=== PATIENT | male | born 2000 | race Caucasian/White ===

== ENCOUNTER → 2020-03-16 | Outpatient (REF) | payer OTHER ==
[2020-03-16 12:43] LABS: BLOOD UREA NITROGEN 14 MG/DL (7-18); CALCIUM LEVEL 8.9 MG/DL (8.5-10.1); CARBON DIOXIDE LEVEL 29 MEQ/L (21-32); CHLORIDE LEVEL 107 MEQ/L (98-107); CREATININE FOR GFR 0.86 MG/DL (0.70-1.30); GLOMERULAR FILTRATION RATE > 60.0 (>60); GLUCOSE, FASTING 83 MG/DL (70-100); POTASSIUM SERUM 4.4 MEQ/L (3.5-5.1); SODIUM LEVEL 140 MEQ/L (136-145)
[2020-03-16 12:45] LABS: HEMATOCRIT 41.9 % (42.0-52.0); HEMOGLOBIN 14.1 g/dl (13.5-17.5); MEAN CORPUSCULAR HEMOGLOBIN 31.8 pg (27.0-33.0); MEAN CORPUSCULAR HGB CONC 33.7 g/dl (32.0-36.5); MEAN CORPUSCULAR VOLUME 94.6 fl (80.0-96.0); PLATELET COUNT, AUTOMATED 300 10^3/uL (150-450); RED BLOOD COUNT 4.43 10^6/uL (4.30-6.10); WHITE BLOOD COUNT 5.5 10^3/uL (4.0-10.0)
[2020-03-16 12:55] LABS: INR 1.11
[2020-03-16 12:56] LABS: PARTIAL THROMBOPLASTIN TIME 29.1 SECONDS (25.0-38.4)
== END ==
LOC: M LABSMT 10:16
PROVIDERS: ATTEND Nurse Practitioner Family
DX: Z01.818 Encounter for other preprocedural examination (principal); N47.1 Phimosis

== ENCOUNTER 2020-03-18 07:13 | Day surgery (SDC) | payer OTHER ==
[~2020-03-18] VITALS: Ht 172.7 cm; Wt 93.4 kg
[~2020-03-18 07:13] MED LIST: LR 1,000 ML IV ONE; ceFAZolin SOD 2 GM in IV 1 EA IV ONE
[2020-03-18] MEDS ORDERED: fentaNYL 100 MCG/2 ML INJECTION (J3010) As Ordered ONE (07:50)
[2020-03-18] MEDS ORDERED: dexameTHASONE 4 MG/ML 1ML VIAL (J1100 PER 1MG) As Ordered ONE (07:50)
[2020-03-18] MEDS ORDERED: LIDOCAINE 2% 100MG/5ML SDV (FOR ANES.) As Ordered ONE (07:50)
[2020-03-18] MEDS ORDERED: propofoL 200 MG/20 ML VIAL As Ordered ONE (07:50)
[2020-03-18] MEDS ORDERED: METOCLOPRAMIDE INJ 10MG/2ML VIAL (J2765 PER 1) As Ordered ONE (07:50)
[2020-03-18] MEDS ORDERED: ONDANSETRON 4MG/2ML VIAL As Ordered ONE (07:50)
[2020-03-18] MEDS ORDERED: MIDAZOLAM INJ 2MG/2ML VIAL (J2250 PER 1MG) As Ordered ONE (07:50)
[2020-03-18] MEDS ORDERED: BACITRACIN OINTMENT 30GM TUBE As Ordered ONE (09:10)
[2020-03-18] MEDS ORDERED: KETOROLAC 60 MG/2 ML VIAL As Ordered ONE (10:22)
--- NOTE | 2020-03-18 11:09 | ROOPDOC ---
[facility] Report Of Operation Report of Operation DATE OF PROCEDURE: 03/18/20 PREPROCEDURE DIAGNOSIS: Phimosis. POSTPROCEDURE DIAGNOSIS: Phimosis. OPERATIVE PROCEDURE: Circumcision. SURGEON: Muna Huber MD DEPUTY SHERIFF GENERALIST/BAILIFF: None. ANESTHESIA: General. OPERATIVE INDICATIONS: This is a 19-year-old male with phimosis presenting to the operating room today for the above listed procedure. DESCRIPTION OF PROCEDURE: The patient was brought to the operating room and general endotracheal anesthesia was induced. Prophylactic antibiotics were infused. He was then placed in the supine position, and prepped and draped in the usual sterile fashion. At this point, circumcising incisions were made at the level of coronal sulcus with the foreskin completely pulled over the glans, and then also with the foreskin retracted down off of the glans. These circumcising incisions were then connected using electrocautery. All the foreskin between the circumcising incisions were then removed using electrocautery. Once that was done hemostasis was obtained using the coagulation current. Once satisfied with hemostasis, the skin on the penile shaft was reapproximated to the glans using interrupted #3-0 chromic sutures. Once that was done dressings were applied, including Kalpesh and a Coban dressing, and marked the conclusion of the procedure. The patient was then awakened from anesthesia and transported to the recovery room in stable condition. ESTIMATED BLOOD LOSS: 15 mL. COMPLICATIONS: None. SPECIMENS: Foreskin. PLAN: The patient will followup in clinic in a approximately 2 weeks for a postoperative visit. MUNA HUBER MD Mar 18, 2020 11:09
[2020-03-18] MEDS ORDERED: oxyCODONE 5MG TAB PO PRN (11:15)
[2020-03-18] MEDS ORDERED: ONDANSETRON 4MG/2ML VIAL IV PRN (11:15)
[2020-03-18] MEDS ORDERED: PERCOCET 5MG/325MG TAB PO PRN (11:15)
[2020-03-18] MEDS ORDERED: fentaNYL 100 MCG/2 ML INJECTION (J3010) IV PRN (11:15)
[2020-03-18] MEDS ORDERED: LR 1,000 ML IV SCH (11:15)
[2020-03-18 12:35] VITALS: BP 136/63
== END 2020-03-18 13:45 | disposition home or self-care (01) ==
LOC: M SDC 07:13
PROVIDERS: ATTEND Urology
DX: N47.1 Phimosis (principal)
CPT/HCPCS: 54161; 88304; J0690; J1100; J1885; J2250; J2405; J2765; J3010